=== PATIENT | female | born 1985 | race Caucasian/White ===

== ENCOUNTER → 2021-08-21 14:45 | Outpatient (CLI) | payer BC, SELFPAY ==
--- NOTE | 2021-08-21 15:00 | DI.US.S_ITS ---
PROCEDURE: US OB <= 14 WEEKS FETUS INDICATIONS: DATING OUTSIDE/PRIOR DATING DATA: Last menstrual period (LMP): 06/18/2021 LMP-based estimated date of delivery (ALOK): 03/25/2022. First dating scan (date and location): 08/21/2021. Estimated date of delivery (ALOK) from first dating scan: 03/19/2022. The calculations are made using the ultrasound ALOK of 03/19/2022. TECHNIQUE: Real-time scanning was performed of the fetus and maternal pelvic organs, with image documentation. Endovaginal scanning was also performed to better visualize the fetus and maternal ovaries. COMPARISON: None. FINDINGS: Embryo: [place]-rump length measures 3.1 cm corresponding to 10 weeks. Heart rate measures 169 beats per minute. Maternal organs: Ovaries within normal limits, with right corpus luteal cyst. IMPRESSION: 10 week 0 day single living IUP. We strive to produce accurate, complete, and clear reports of imaging services. To assist us in improving patient care, this report was composed using standard report templates and voice recognition software. Therefore, it may contain abnormal punctuation, insertions and/or omissions. Occasional wrong-word or sound-alike substitutions may occur. Though we review the report and make efforts to correct it, we do recommend that the report be read carefully in proper context to recognize any text inaccuracies. Dictated by: Brendan ZAFAR Interpreted: Shawnee Brooks MD on 08/21/2021 at 15:50 Transcribed by: ANNEL on 08/21/2021 at 15:52 Approved by: Shawnee Brooks M.D. on 08/21/2021 at 16:40
== END ==
PROVIDERS: PCP Family Medicine; Referring Provider Family Medicine; Visit Provider Family Medicine
DX: Z34.01 Encounter for supervision of normal first pregnancy, first trimester (principal); Z3A.10 10 weeks gestation of pregnancy
CPT/HCPCS: 76801; 76817

== ENCOUNTER → 2021-08-24 08:45 | Outpatient (CLI) | payer BC, SELFPAY ==
[2021-08-24 09:49] LABS: Appearance Urine UA CLEAR; Bilirubin Urine UA NEGATIVE (NEGATIVE); Color Urine UA YELLOW; Glucose Urine UA NEGATIVE (Negative); Ketones Urine UA NEGATIVE (NEGATIVE); Leukocyte Esterase Urine UA NEGATIVE (NEGATIVE); Nitrite Urine UA NEGATIVE (Negative); Occult Blood Urine UA 2+ (Negative); Protein Urine UA NEGATIVE (Negative); Specific Gravity Urine UA >=1.030 (1.000-1.035); Urobilinogen Urine UA 0.2 E.U./dL (0.2)
[2021-08-24 09:59] LABS: Add Manual Diff / Slide Review NO; Basophils Absolute Auto 0 /uL (0-100); Basophils Percent Auto 0.3 % (0-2); Eosinophils Absolute Auto 100 /uL (0-450); Eosinophils Percent Auto 1.1 % (2-4); Hematocrit 38.4 % (36-46); Hemoglobin 13.3 g/dL (12.0-16.0); Lymphocytes Absolute Auto 1500 /uL (1100-4500); Lymphocytes Percent Auto 19.6 % (25-40); Mean Corpuscular HGB Conc 34.7 % (30-36); Mean Corpuscular Hemoglobin 31.2 PG (26-34); Monocytes Absolute Auto 900 /uL (0-900); Monocytes Percent Auto 11.2 % (3-14); Neutrophils Absolute Auto 5200 /uL (1500-7000); Neutrophils Percent Auto 67.8 % (50-75); Platelet Count 248 X10^3/uL (150-400); Red Blood Cell Count 4.27 X10^6/uL (4.0-5.2); Red Cell Distribution Width 12.3 % (11.6-14.8); White Blood Cell Count 7.6 X10^3/uL (4.5-11.0)
[2021-08-24 11:21] LABS: Bacteria Urine Occasional (0-1); Mucus Urine 1+ (Negative); RBC Urine 1-5/HPF (0-5/HPF); Squamous Epithelial Cell Urine 1-5 /HPF (0-5/HPF); WBC Urine 0-1/HPF (0-5/HPF)
[2021-08-24 18:20] LABS: HIV 1 & 2 Ab/Ag 4th Gen Combo NEGATIVE (NEGATIVE); Hep C Virus Ab w/Reflex Quant NEGATIVE s/c (NEGATIVE); Hepatitis B Surface Antigen NEGATIVE s/c (NEGATIVE); Rubella Antibody IgG 37.6 IU/mL (>15)
[2021-08-25 08:12] LABS: RPR Screen Non Reactive (Non Reactive); Varicella IgG Antibody 1221 index (Immune >165)
== END ==
PROVIDERS: PCP Family Medicine; Referring Provider Family Medicine; Visit Provider Family Medicine
DX: Z34.00 Encounter for supervision of normal first pregnancy, unspecified trimester (principal)
CPT/HCPCS: 36415; 80055; 81003; 81015; 86787; 86803; 86850; 86900; 86901; 87086; 87389

== ENCOUNTER → 2021-09-11 11:11 | Outpatient (CLI) | payer BC, SELFPAY ==
[2021-09-11 12:05] LABS: Specimen Label Y
== END ==
PROVIDERS: PCP Family Medicine; Referring Provider Family Medicine; Visit Provider Family Medicine
DX: Z3A.12 12 weeks gestation of pregnancy (principal); Z36.0 Encounter for antenatal screening for chromosomal anomalies; Z31.438 Encounter for other genetic testing of female for procreative management; Z34.91 Encounter for supervision of normal pregnancy, unspecified, first trimester
CPT/HCPCS: 36415

== ENCOUNTER → 2021-11-22 12:10 | Outpatient (CLI) | payer BC, SELFPAY ==
--- NOTE | 2021-11-22 12:11 | DI.US.S_ITS ---
PROCEDURE: US OB >= 14 WEEKS FETUS INDICATIONS: anatomy screening OUTSIDE/PRIOR DATING DATA: Last menstrual period (LMP): 06/18/2021. LMP-based estimated date of delivery (ALOK): 03/25/2022. First dating scan (date and location): 08/21/2021. Estimated date of delivery (ALOK) from first dating scan: 03/19/2022. The calculations are made using the ultrasound ALOK of 03/19/2022. TECHNIQUE: Real-time scanning was performed of the fetus, with image documentation and biometric measurements. COMPARISON: [facility], , OB <= 14 WEEKS FETUS, 08/21/2021, 14:58. FINDINGS: General: A single living intrauterine gestation is present. Presentation: Vertex. Placenta: Placental position is anterior , without previa. Amniotic fluid index: 16.5 cm, normal range is 5-24 cm. heart rate: 135 beats per minute. Maternal cervical canal: 3.5 cm long. Normal lower limit is 2.5 cm. biometrics: Biparietal diameter: 5.9 cm 24 weeks 2 days Head circumference: 21.4 cm 23 weeks 3 days Abdominal circumference: 18.7 cm 23 weeks 3 days Femur length: 4.2 cm 23 weeks 5 days Clinically estimated gestational age: 23 weeks 2 days Composite gestational age from present scan: 23 weeks 5 days Estimated weight and percentile: 610 g, 58th percentile Anatomic survey: Neuro: Ventricles are non-dilated at less than 10 mm. Cisterna magna is normal at 3-11 mm. Cerebellum is normal in size and morphology. Nuchal skin fold: Normal at less than 6 mm between 14-21 weeks gestational age. Face: Nose and lips, facial profile are normal. Spine: No evidence for spina bifida. Heart: 4-chambered heart is present, with normal ventricular outflow tracts. Diaphragm: Diaphragm is intact. Stomach: Left-sided stomach is present. Kidneys: No hydronephrosis. Normal is less than 5 mm in 2nd trimester, less than 7 mm in 3rd trimester. Cord: 3-vessel cord has orthotopic insertion. Bladder: Normal in size. Extremities: All 4 extremities identified. IMPRESSION: Single live intrauterine with ultrasound gestational age today of 23 weeks 5 days. Anatomy is within normal limits. We strive to produce accurate, complete, and clear reports of imaging services. To assist us in improving patient care, this report was composed using standard report templates and voice recognition software. Therefore, it may contain abnormal punctuation, insertions and/or omissions. Occasional wrong-word or sound-alike substitutions may occur. Though we review the report and make efforts to correct it, we do recommend that the report be read carefully in proper context to recognize any text inaccuracies. Dictated by: Annette Norris M.D. on 11/22/2021 at 16:27 Approved by: Annette Norris M.D. on 11/22/2021 at 16:30
== END ==
PROVIDERS: PCP Family Medicine; Referring Provider Family Medicine; Visit Provider Family Medicine
DX: Z34.92 Encounter for supervision of normal pregnancy, unspecified, second trimester (principal); Z3A.23 23 weeks gestation of pregnancy
CPT/HCPCS: 76811; 76817

== ENCOUNTER → 2021-12-28 08:23 | Outpatient (CLI) | payer BC, SELFPAY ==
[2021-12-28 09:59] LABS: Hematocrit 35.2 % (36-46); Hemoglobin 12.4 g/dL (12.0-16.0)
[2021-12-28 10:22] LABS: GTT (PREG) 1 Hour PP 50gm Dose 109 mg/dL (76-139)
== END ==
PROVIDERS: PCP Family Medicine; Referring Provider Family Medicine; Visit Provider Family Medicine
DX: Z34.92 Encounter for supervision of normal pregnancy, unspecified, second trimester (principal); Z3A.26 26 weeks gestation of pregnancy
CPT/HCPCS: 36415; 82950; 85014; 85018; 86850

== ENCOUNTER 2022-01-19 18:17 | Outpatient (CLI) | payer BC, SELFPAY ==
[2022-01-19] MEDS: ACETAMINOPHEN 325 MG TABLET 975 MG PO (19:02)
--- NOTE | 2022-01-20 11:22 | P.TNLD_ITS ---
Visit Information Visit Information Date of evaluation: 01/19/22 Primary OB Provider: Lesvia Ibarra On-call OB Provider: Lilliam Henry Reason for Evaluation: Yes other Comments/Additional reasons for admission: Low back pain Pt states that she has had low back pain since yesterday. Had a massage today. Has tried ice. No contractions, LOF or VB. Good FM PFSH Surgical History [place] teeth extracted (~2013) Family History Mother History of recurrent miscarriages Hypertension Father Hypertension Grandmother Myocardial infarction Grandfather Prostate cancer metastatic to bone Hypertension Grandmother Cancer Hypertension Hyperlipidemia Type 2 diabetes mellitus Grandfather Hypertension Prostate cancer Social History marital status: unmarried,living together (FOB involved, supportive. ) household members: significant other lives independently: Yes caregiver/support person: No housing: house pets and animals: Yes (1 cat, 1 dog: aware. ) education level: vocational (Tech school x 1 year, Dental assisting) occupational status: employed (for [employer]) current occupational exposures/hazards: No garrett/hoahaoism: Roman Catholic special garrett needs: No seatbelt use: always do you feel safe at home: Yes Smoking Status: Former smoker second hand exposure: No alcohol intake: former (Pre-: 1-2 x /week) substance use type: does not use during the past year weight has: increased > 10 lbs well-balanced diet: about half the time daily servings fruits/ve or more times/day caffeine: Yes (Has cut down: no coffee or half-caff.) Type(s) of exercise: walking (not lately but setting goals to get back to it. ) frequency: 5-6 times per week duration: 30-45 minutes/day Exam Narrative Exam Narrative: Generally: No acute distress Abd: soft, gravid Back: No CVAT Evaluation Evaluation Baseline heart rate: 135 Variability: Moderate (11-25) monitor accelerations: Present Monitor Decelerations: Absent Contraction Frequency (minutes): 0 Status: Category l Diagnosis, Plan/Disposition Plan/Disposition Plan: Assessment: 36 year old at 30+5 with low back pain No PTL Plan: Discharge to home F/U as scheduled Ice/heat Tylenol prn OB Disposition: home
== END 2022-01-19 19:30 | disposition home or self-care (01) ==
LOC: OB 01-22 10:48
PROVIDERS: PCP Family Medicine; Referring Provider Family Medicine; Visit Provider Family Medicine
DX: O26.893 Other specified pregnancy related conditions, third trimester (principal); M54.50 Low back pain, unspecified; Z3A.30 30 weeks gestation of pregnancy
CPT/HCPCS: 59025; G0378; G0379

== ENCOUNTER → 2022-03-01 08:09 | Outpatient (CLI) | payer BC, SELFPAY ==
[2022-03-02 17:44] LABS: Strep Grp B PCR NEG for Grp B Strep
== END ==
PROVIDERS: PCP Family Medicine; Visit Provider Family Medicine
DX: Z34.93 Encounter for supervision of normal pregnancy, unspecified, third trimester (principal); Z3A.36 36 weeks gestation of pregnancy
CPT/HCPCS: 87653

== ENCOUNTER 2022-03-28 00:45 | Inpatient (IN) | payer BC, SELFPAY ==
[2022-03-28 02:56] LABS: Add Manual Diff / Slide Review NO; Basophils Absolute Auto 0 /uL (0-100); Basophils Percent Auto 0.4 % (0-2); Eosinophils Absolute Auto 300 /uL (0-450); Eosinophils Percent Auto 2.5 % (2-4); Hematocrit 36.2 % (36-46); Hemoglobin 12.3 g/dL (12.0-16.0); Lymphocytes Absolute Auto 1800 /uL (1100-4500); Mean Corpuscular HGB Conc 34.1 % (30-36); Mean Corpuscular Hemoglobin 31.6 PG (26-34); Mean Corpuscular Volume 92.7 fL (80-100); Monocytes Absolute Auto 1000 /uL (0-900); Monocytes Percent Auto 8.2 % (3-14); Neutrophils Absolute Auto 9000 /uL (1500-7000); Neutrophils Percent Auto 73.9 % (50-75); Platelet Count 248 X10^3/uL (150-400); Red Cell Distribution Width 14.1 % (11.6-14.8); White Blood Cell Count 12.2 X10^3/uL (4.5-11.0)
[2022-03-28 02:59] LABS: Alanine Aminotransferase 17 IU/L (<35); Albumin 3.7 g/dL (3.5-5.0); Albumin Globulin Ratio 1.1 (1.0-2.8); Alkaline Phosphatase 133 U/L (38-126); Aspartate Aminotransferase 22 IU/L (14-36); BUN Creatinine Ratio 28.8 (6-22); Bilirubin Total 0.4 mg/dL (0.2-1.3); Blood Urea Nitrogen 17 mg/dL (7-17); Calcium 8.9 mg/dL (8.4-10.2); Carbon Dioxide 22 mmol/L (22-32); Chloride 105 mmol/L (98-107); Estimated Glomerular Filt Rate > 60 mL/min (>60); Globulin 3.5 g/dL (1.7-4.1); Glucose 96 mg/dL (70-100); HEMOLYSIS < 15 (0-50); Sodium 135 mmol/L (137-145); Total Protein 7.2 g/dL (6.3-8.2); Uric Acid 4.7 mg/dL (2.5-6.2)
[2022-03-28 03:02] LABS: COVID19 -Nasal RAPID Negative (Negative)
[2022-03-28] MEDS: LACTATED RINGERS 1,000 ML 100 ML IV ×2 (03:09→04:56)
[2022-03-28 05:34] VITALS: BP 144/87
--- NOTE | 2022-03-28 06:09 | P.HPOB_ITS ---
OB HPI Date/Time Date of admission: 03/28/22 Date Patient Seen: 03/28/22 Time Patient Seen: 06:09 History of Present Condition Chief complaint: LABOR ALOK Calculator Estimated Delivery Date Method Current WG Current Estimate 03/25/22 LMP (Uncertain) 40w 3d Other Estimates 03/19/22 Ultrasound #1 41w 2d Estimated Gestational Age (weeks): 40w3d : 3 Para: 0 Narrative: 36-year-old at 40 weeks and 3 days presents with regular painful contractions which began at home at approximately 9:00 p.m. night. Contractions increased in intensity prompting her to come to the center about 1:00 a.m.. Denied leaking or bleeding however approximately 3:00 a.m. she did have leaking a small amount of clear fluid prior to epidural placement. has been uncomplicated. She did have COVID twice, mild both times. She is Rh negative and received RhoGAM. care: good care, initiated at week # (12), number of visits (13) and pounds weight gain (81) Dating criteria OB: LMP confirmed by 1st trimester US Ultrasounds: normal mid trimester US Obstetrical complications: none Medical complications OB: none Preadmission Labs Last OB Lab Results: Blood Type O Negative 03/28/22 02:22 Antibody Screen Positive 03/28/22 02:22 Hematocrit 36.2 % (36-46) 03/28/22 02:30 Hemoglobin 12.3 g/dL (12.0-16.0) 03/28/22 02:30 Hepatitis B Surface Antigen Negative s/c (NEGATIVE) 08/24/21 09 :03 Hepatitis C Antibody Negative s/c (NEGATIVE) 08/24/21 09:03 Rubella Antibody 37.6 IU/mL (>15) 08/24/21 09:03 Varicella-Zoster IgG Antibody 1221 index (Immune >165) 08/24/21 09:03 Glucose 1 Hour 109 mg/dL (76-139) 12/28/21 09:39 Group B Streptococcus (PCR) Neg for grp b strep 03/01/22 08:09 -: Chlamydia screen: negative, Gonorrhea screen: negative and Urine: negative -: PAP smear: Normal Genetic Screens: Cell-free DNA: Normal External Labs -: Urine: negative Prior (ies) Past Pregnancies Del. Date GA/Weeks Labor Lgth Wt Sex Route Outcome Anesthesia Place Delv Breastfeed Preg Comp Name 07/29/06 elective elective 07/29/10 spontaneous spontaneous Delivery Date: 07/29/06 Last Updated by: Gem Alegria R.N. Procedure, no complications. Delivery Date: 07/29/10 Last Updated by: Gem Alegria R.N. completed on its own, very early. Evaluation Evaluation Baseline heart rate: 130 Variability: Moderate (11-25) monitor accelerations: Present Monitor Decelerations: Absent Contraction Frequency (minutes): 8 Status: Category l Dilation (cm): 8 Effacement (%): 100 station: 0 PFSH Surgical History [place] teeth extracted (~2013) Family History Mother History of recurrent miscarriages Hypertension Father Hypertension Grandmother Myocardial infarction Grandfather Prostate cancer metastatic to bone Hypertension Grandmother Cancer Hypertension Hyperlipidemia Type 2 diabetes mellitus Grandfather Hypertension Prostate cancer Social History marital status: unmarried,living together (FOB involved, supportive. ) household members: significant other lives independently: Yes caregiver/support person: No housing: house pets and animals: Yes (1 cat, 1 dog: aware. ) education level: vocational (Tech school x 1 year, Dental assisting) occupational status: employed (for [employer]) current occupational exposures/hazards: No garrett/jewish: Spiritism special garrett needs: No seatbelt use: always do you feel safe at home: Yes Smoking Status: Never smoker second hand exposure: No alcohol intake: former (Pre-: 1-2 x /week) substance use type: does not use during the past year weight has: increased > 10 lbs well-balanced diet: about half the time daily servings fruits/ve or more times/day caffeine: Yes (Has cut down: no coffee or half-caff.) Type(s) of exercise: walking (not lately but setting goals to get back to it. ) frequency: 5-6 times per week duration: 30-45 minutes/day Meds Home Medications and Allergies Home Medications Medication Instructions Recorded Confirmed Type ferrous sulfate 325 mg (65 mg 325 mg PO DAILY 08/17/21 03/28/22 History iron) tablet (FeroSul) folic acid 400 mcg tablet 0.4 mg PO DAILY 08/17/21 03/28/22 History prenat.vits,tobin,[id number] 1 tab PO DAILY 08/17/21 03/28/22 History Allergies Allergy/AdvReac Type Severity Reaction Status Date / Time No Known Drug Allergies Allergy Verified 03/28/22 05:36 Review of Systems Review of Systems ROS: Yes All systems reviewed with the patient and are negative except as otherwise documented OB Exam Narrative Exam Narrative: Temperature 36.7? blood pressure 126/67 heart rate 70 HENMT Head: normal to inspection Mouth: oral mucosae normal Eyes General: appearance normal, both eyes and all related structures Resp Effort & Inspection: normal respiratory effort Auscultation: clear to auscultation bilaterally Cardio Rate: regular rate Rhythm: regular rhythm Extremities Lower extremity: Yes normal to inspection and edema (1+ bilateral) Presentation: vertex Estimated Weight (lbs): 8 Amniotic Fluid: clear Objective Labs Result Diagrams: 03/28/22 02:30 03/28/22 02:30 Labs: Laboratory Results - last 24 hr 03/28/22 03/28/22 03/28/22 02:20 02:22 02:30 WBC 12.2 H RBC 3.90 L Hgb 12.3 Hct 36.2 MCV 92.7 MCH 31.6 MCHC 34.1 RDW 14.1 Plt Count 248 Neut % (Auto) 73.9 Lymph % (Auto) 15.0 L [place] % (Auto) 8.2 Eos % (Auto) 2.5 Baso % (Auto) 0.4 Neut # (Auto) 9000 H Lymph # (Auto) 1800 [place] # (Auto) 1000 H Eos # (Auto) 300 Baso # (Auto) 0 Sodium Potassium Chloride Carbon Dioxide BUN Creatinine Estimated GFR BUN/Creatinine Ratio Glucose Uric Acid Calcium Total Bilirubin AST ALT Alkaline Phosphatase Total Protein Albumin Globulin Albumin/Globulin Ratio SARS-CoV-2 (PCR) Negative Blood Type O Negative Antibody Screen Positive Antibody Identification Anti-D 03/28/22 02:30 WBC RBC Hgb Hct MCV MCH MCHC RDW Plt Count Neut % (Auto) Lymph % (Auto) [place] % (Auto) Eos % (Auto) Baso % (Auto) Neut # (Auto) Lymph # (Auto) [place] # (Auto) Eos # (Auto) Baso # (Auto) Sodium 135 L Potassium 4.0 Chloride 105 Carbon Dioxide 22 BUN 17 Creatinine 0.59 Estimated GFR > 60 BUN/Creatinine Ratio 28.8 H Glucose 96 Uric Acid 4.7 Calcium 8.9 Total Bilirubin 0.4 AST 22 ALT 17 Alkaline Phosphatase 133 H Total Protein 7.2 Albumin 3.7 Globulin 3.5 Albumin/Globulin Ratio 1.1 SARS-CoV-2 (PCR) Blood Type Antibody Screen Antibody Identification Assessment and Plan Assessment and Plan Assessment and Plan narrative: 36-year-old at 40 weeks and 3 days in active labor, now comfortable with epidural. GBS negative, Rh negative. She initially had elevated blood pressures which improved after epidural placement. CBC and CMP reassuring against preeclampsia. After epidural, contractions spaced out. Cervical exam is unchanged from 2 hours ago so will start Pitocin augmentation. Anticipate .
[2022-03-28] MEDS: OXYTOCIN PREMIX 30 UNIT/500 ML PLAST..BAG IV (06:34)
--- NOTE | 2022-03-28 09:43 | P.PNOB_ITS ---
Date/Time Date Patient Seen: 03/28/22 Time Patient Seen: 09:43 Pain Control Pain control: epidural Pelvic Exam Dilation (cm): 10 Effacement (%): 100 station: 0 Amniotic membrane status: Ruptured (blood tinged) Contractions Monitor mode: External Contraction frequency (min): 3 Status status: Category l Heart Rate Baseline: 130 Monitor Accelerations: Present Monitor Decelerations: Early Monitor Variability: Moderate Assessment and Plan Assessment: active labor Plan: continuous present management Comments: 36 year old at 40+3 weeks in active labor. Now complete after pitocin aug mentation and found to have a bulging bag on exam. AROM performed, unable to determine presence of meconium due to bloody show prior to rupture but will monitor color of fluid. Will labor down for an hour to allow for descent of the head. Epidural is also quite dense and she does not feel rectal pressure or urge to push.
[2022-03-28] MEDS: FENT 2MCG/ML BUPIV 0.125% EPI 200 MCG/100 ML PLAST..BAG 13 MCG EPIDURAL (10:37)
--- NOTE | 2022-03-28 11:01 | PM.OBPNLAB ---
Date/Time Date Patient Seen: 03/28/22 Time Patient Seen: 10:45 Pain Control Pain control: tolerating well and epidural Comments: She has felt rectal pressure but not constant. Pelvic Exam Dilation (cm): 10 Effacement (%): 100 station: +1 Amniotic membrane status: Ruptured (blood tinged) Contractions Monitor mode: External Pitocin rate (mU/min): 3 Contraction frequency (min): 3 Status status: Category ll Heart Rate Baseline: 135 Monitor Accelerations: Present Monitor Decelerations: Early Monitor Variability: Minimal Assessment and Plan Assessment: active labor Plan: continuous present management Comments: 36 year old at 40+3 weeks in active labor. head descended over the last hour. There have been periods of minimal variability with improvement to moderate. Will begin pushing.
--- NOTE | 2022-03-28 13:01 | PM.OBPRVD ---
Labor & Delivery Delivery date: 03/28/22 Delivery augmentation: rupture of membranes and pitocin Delivery monitor: external FHT Route of delivery: L&D Laceration Description: Perineal - 2nd Degree Delivery repair: chromic Estimated blood loss (mL): 300 Anesthesia Type: Epidural Narrative: Patient is a 36-year-old at 40+3 weeks who gave on 03/28/22 at 12:30 p.m.. ALOK: 03/25/22 Hospital problems: 40 weeks of Spontaneous vaginal delivery Cord avulsion STAGE I: Labor Patient presented active labor and received an epidural. Contractions spaced after epidural placement and cervical dilation stalled so pitocin started for augmentation. AROM at 9:41 a.m. with clear fluid. She was completely dilated at 10:45 a.m.. She had one isolated temperature to 101 temporally however oral temperature was 98.9. There was no tachycardia or foul smelling amniotic fluid to raise concern for chorioamniotis. heart tones were category 1 and 2 throughout stage one due to periods of minimal variability. STAGE II: Delivery Patient was complete and pushed for 1 hour and 45 minutes. She went on to deliver a vigorous female infant at 12:30 p.m.. was vertex and ALE. There was a nuchal cord which avulsed during attempted reduction. Infant delivered immediately thereafter with a strong cry and was placed on mother's abdomen. Cord was found to have avulsed at the umbilicus. RN pinched the cord stump to stop bleeding then it was clamped with the cord clamp. Bleeding from infant did not appear excessive and was estimated at 5 ml by RN. remained vigorous with a strong cry and tone though pale pink. She remained with mother. Apgars were 7 and 9 at one and five minutes. STAGE III: Placenta/Cord Placenta delivered at 12:34 p.m. and appeared intact with a thin three vessel cord. Pitocin bolus given via IV after delivery of placenta. Fundus firm below umbilicus. A second degree perineal and vaginal laceration was repaired with 3-O chromic in the usual fashion with good hemostasis. EBL: 300 mL. Needle and sponge counts were correct. The vagina was inspected and no items were left in situ. Patient was doing well with Lanny, her and partner and sewing machine operator floorperson at bedside. Baby 1: gender: Female Presentation: vertex Position: Right Occiput Anterior Cord Vessel Description: Nuchal Cord (x1, reduced then cord avulsed) score (1 min): 7 score (5 min): 9 Plan for aftercare: Routine care
[2022-03-28] MEDS: ACETAMINOPHEN 325 MG TABLET 650 MG PO ×2 (14:47→22:48)
[2022-03-28] MEDS: IBUPROFEN 600 MG TABLET PO ×2 (14:48→22:47)
[2022-03-28] MEDS: DERMOPLAST SPRAY 20% 60 ML 1 SPRAY TOP (14:49)
[2022-03-29] MEDS: ACETAMINOPHEN 325 MG TABLET 650 MG PO ×2 (04:46→11:27)
[2022-03-29] MEDS: IBUPROFEN 600 MG TABLET PO ×2 (04:47→11:28)
[2022-03-29 06:10] LABS: Hematocrit 30.3 % (36-46); Hemoglobin 10.3 g/dL (12.0-16.0)
--- NOTE | 2022-03-29 08:17 | PM.OBDS.1 ---
Discharge Providers Provider Date of admission: 03/28/22 00:45 Discharge Date: 03/29/22 Primary care physician: Lesvia Ibarra DO Consults: 03/28/22 02:33 Consult to Anesthesiology Urgent Comment: Consulting Provider: Anesthesiologist Reason for consultation: epidural for labor 03/29/22 12:59 Consult to Nurse Transplant Routine Comment: Discharge provider: Lesvia Ibarra DO Summary Hospital Course Date Patient Seen: 03/29/22 Time Patient Seen: 07:45 Diagnoses: 40 weeks of Spontaneous vaginal delivery Hospital Course: 36-year-old G3 now P1 after spontaneous vaginal delivery at 40 weeks and 3 days. Patient presented in active labor and received an epidural. She went on to deliver a vigorous female however delivery was complicated by a nuchal cord and subsequent cord avulsion near the umbilicus. Cord was clamped immediately and did well with Apgars of 7 and 9. A second-degree perineal laceration was repaired in the usual fashion with good hemostasis. course has been uncomplicated she is ambulating, voiding and tolerating a diet. Pain controlled with ibuprofen and bleeding moderate as expected. is going well. No concerns in the . She is Rh negative and infant was Rh positive. RhoGAM given before discharge. Advised patient to call for fevers, severe pain or bleeding through more than a pad an hour. Follow-up in clinic in 6 weeks or sooner if needed. Peripartum Data Infant Delivery Method: Natural Vaginal Laceration Description: Perineal - 2nd Degree Discharge Diagnosis (1) Spontaneous vaginal delivery: Status: Acute (2) 40 weeks gestation of : Status: Acute (3) Rh negative status during : Status: Acute Time Spent with Patient Time attestation: Total time spent providing and/or coordinating discharge services: Time spent: Less than 30 minutes Objective Labs Result Diagrams: 03/29/22 05:55 03/28/22 02:30 Labs: Laboratory Results - last 24 hr 03/29/22 03/29/22 05:55 05:55 Hgb 10.3 L Hct 30.3 L Maternal Bleed Negative Exam Vital Signs (past 8 hours): Temperature 97.9? blood pressure 121/64 heart rate 64 respirations 14 Narrative Exam Narrative: General: Awake and alert, no acute distress. HEENT: NCAT, EOMI, moist oral mucosa CV: Regular rate and rhythm, no murmurs, rubs or gallops Lungs: CTAB, no wheezes, rales, or rhonchi Abdomen: Soft, nontender; bowel tones active; uterus firm 1 cm below umbilicus Extremities: Warm, trace edema bilaterally Discharge Plan Discharge Plan Patient Disposition: Home Discharge orders & Medications Prescriptions: New docusate sodium 100 mg Capsule 100 mg PO DAILY Qty: 30 0RF ibuprofen 600 mg Tablet 600 mg PO Q6HR PRN (Reason: Pain, Mild (1-3)) Qty: 30 0RF Continued prenat.vits,tobin,[id number] Tablet 1 tab PO DAILY folic acid 400 mcg tablet 0.4 mg PO DAILY ferrous sulfate [FeroSul] 325 mg (65 mg iron) tablet 325 mg PO DAILY Follow up/Referrals: Lesvia Ibarra DO [Primary Care Provider] - 6 Weeks Visit Report/Discharge Packet Visit Report Forms: Patient Portal/API, Stroke Signs & Symptoms Discharge Data Primary Care Provider: Lesvia Ibarra
[2022-03-29] MEDS: DERMOPLAST SPRAY 20% 60 ML 1 SPRAY TOP (11:26)
[2022-03-29] MEDS: LANOLIN OINT 7 GM 1 APPLIC TOP (11:26)
[2022-03-29] MEDS: PRENATAL VIT,CALC/IRON/FOLIC 1 TABLET 1 TAB PO (11:28)
[2022-03-29] MEDS: DOCUSATE 100 MG CAPSULE PO (11:28)
[2022-03-29] MEDS: RHO(D) IMMUNE GLOBULIN 1,500 UNIT SYRINGE 1500 UNIT IM (17:40)
== END 2022-03-29 19:30 | disposition home or self-care (01) | DRG 806 ==
PROVIDERS: Admitting Provider Family Medicine; PCP Family Medicine; Referring Provider Obstetrics & Gynecology; Visit Provider Family Medicine
DX: O76 Abnormality in fetal heart rate and rhythm complicating labor and delivery (principal); O36.0130 Maternal care for anti-D [Rh] antibodies, third trimester, not applicable or unspecified; Z37.0 Single live birth; Z3A.40 40 weeks gestation of pregnancy; O70.1 Second degree perineal laceration during delivery; Z20.822 Contact with and (suspected) exposure to COVID-19
CPT/HCPCS: 01967; 36415; 59050; 59400; 80053; 84550; 85014; 85018; 85025; 85461; 86850; 86870; 86900; 86901; 87635; C9803; G0379; J2590; J2790